=== PATIENT | female | born 1995 | race African-American/Black ===

== ENCOUNTER 2016-11-05 01:49 | Emergency (ER) | payer MEDICAID, OTHER ==
[~2016-11-05] VITALS: Ht 162.6 cm; Wt 70.8 kg
[~2016-11-05 01:49] MED LIST: CIPRO500 MG PO; IBUPROFEN600 MG ORAL; MOTRIN400 MG ORAL; NITROFURANTOIN100 M2 ORAL; NKM; NORCO 5-325 TA1 EACH ORAL; PHENAZOPYRIDIN100 MG ORAL
[2016-11-05] MEDS ORDERED: PREDNISONE20 M1 PO (02:12)
[2016-11-05] MEDS ORDERED: PredniSONE 20mg tab ORAL ONE (02:15)
--- NOTE | 2016-11-05 02:15 | Emergency Room Report ---
History of Present Illness General Chief Complaint: Sore Throat Source: Patient Present Illness [facility] This is a 21-year-old female with no past medical history. She presents with chief complaint of sore throat. Onset for last 5 days. She losing her voice. Has a lot of congestion and runny nose. Fhxz-[id number]-[id number] medicine not helping. Worse when she lies flat. No other complaint. Pain is sharp. Allergies: Coded Allergies: SULFA (SULFONAMIDE ANTIBIOTICS) (Verified Allergy, Unknown, 02/19/13) Patient History Past Medical History: none, see triage record, old chart reviewed Past Surgical History: none Pertinent Family History: none Social History: Denies: smoking Last Menstrual Period: sep 28, 2016 Now: No : 0 Para: 0 Immunizations: other Reviewed Nursing Documentation: PMH: Agreed, PSxH: Agreed Nursing Documentation-PMH Past Medical History: No Stated History Review of Systems Eye: Denies: blurred vision, eye pain ENT: Reports: throat pain, Denies: ear pain, throat swelling Respiratory: Denies: cough, shortness of breath Cardiovascular: Denies: chest pain, palpitations Gastrointestinal: Denies: abdominal pain, diarrhea, nausea, vomiting Musculoskeletal: Denies: back pain, joint pain Skin: Denies: rash Neurological: Denies: headache, numbness Endocrine: Denies: increased thirst, increased urine Hematologic/Lymphatic: Denies: easy bruising All Other Systems: negative except mentioned in HPI Physical Exam Vital Signs Date Time Temp Pulse Resp B/P Pulse Ox O2 Delivery O2 Flow Rate FiO2 11/05/16 01:53 98.6 57 20 127/87 100 Room Air vitals normal Sp02 EP Interpretation: reviewed, normal General Appearance: well appearing, no apparent distress, alert Head: normocephalic, atraumatic Eyes: bilateral eye EOMI, bilateral eye PERRL ENT: hearing grossly normal, uvula midline - Elongated Neck: full range of motion, supple, no meningismus Respiratory: chest non-tender, lungs clear, normal breath sounds Cardiovascular #1: regular rate, rhythm, no murmur Gastrointestinal: normal bowel sounds, non tender, no mass, no organomegaly, no bruit, non-distended Musculoskeletal: back normal, gait/station normal, normal range of motion Psychiatric: mood/affect normal Skin: warm/dry Medical Decision Making Diagnostic Impression: Primary Impression: Laryngitis, acute ER Course Patient presents with a viral laryngitis. No evidence of bacterial infection. No evidence of strep throat. No evidence of retropharyngeal abscess. We'll discharge home with reassurance. Last Vital Signs Date Time Temp Pulse Resp B/P Pulse Ox O2 Delivery O2 Flow Rate FiO2 11/05/16 01:53 98.6 57 20 127/87 100 Room Air Status: unchanged Disposition: HOME, SELF-CARE Condition: Stable Scripts Prednisone (Prednisone) 20 Mg Tablet 40 MG PO DAILY, #6 TAB Prov: EDUARDO WEN M.D. 11/05/16 Patient Instructions: Laryngitis Additional Instructions: Followup with your Dr. in 7 days. Try not to talk at all until better. Increase fluid. Salt water gargle. Return if worse. EDUARDO WEN M.D. Nov 05, 2016 02:14
[2016-11-05 02:20] VITALS: BP_SYST 127; BP_SYST 130; BP_DIAS 87
== END 2016-11-05 02:23 | disposition home or self-care (01) ==
LOC: EMR 02:09
DX: J04.0 Acute laryngitis (principal); Z88.2 Allergy status to sulfonamides
CPT/HCPCS: 99283

== ENCOUNTER 2017-05-07 23:56 | Emergency (ER) | payer OTHER, BC ==
[~2017-05-07] VITALS: Ht 162.6 cm; Wt 68.0 kg
[~2017-05-07 23:56] MED LIST changes: +PREDNISONE20 M1 PO
--- NOTE | 2017-05-08 00:36 | Emergency Room Report ---
History of Present Illness General Chief Complaint: Abdominal Pain Source: Patient Present Illness HPI Patient presents with complaints of mid and right upper quadrant abdominal pain Patient reports the pain has been ongoing since last June She has an appointment for an upper endoscopy in May Patient seen her advanced research programs director who has her on probiotics Also obtain stool samples patient has increased nausea vomiting reports decreased oral intake Denies any previous abdominal surgeries is not quite sure what might of exacerbated this problem Allergies: Coded Allergies: SULFA (SULFONAMIDE ANTIBIOTICS) (Verified Allergy, Unknown, 02/19/13) Patient History Past Medical History: see triage record Pertinent Family History: none Last Menstrual Period: 05/01/17 Now: No Reviewed Nursing Documentation: PMH: Agreed, PSxH: Agreed Nursing Documentation-PMH Past Medical History: No History, Except For Hx Gastrointestinal Problems: No - Ovarian cyst (2014) Review of Systems All Other Systems: negative except mentioned in HPI Physical Exam Vital Signs Date Time Temp Pulse Resp B/P (MAP) Pulse Ox O2 Delivery O2 Flow Rate FiO2 05/08/17 00:10 98.2 83 17 117/82 99 Room Air Sp02 EP Interpretation: reviewed, normal General Appearance: well appearing, no apparent distress Head: normocephalic, atraumatic Eyes: bilateral eye PERRL, bilateral eye EOMI ENT: hearing grossly normal, normal pharynx, TMs + canals normal, uvula midline Neck: full range of motion, supple, no meningismus, no bony tend Respiratory: lungs clear, normal breath sounds, no rhonchi, no respiratory distress, no retraction, no accessory muscle use Cardiovascular #1: normal peripheral pulses, regular rate, rhythm, no edema, no gallop, no JVD, no murmur Gastrointestinal: normal bowel sounds, non tender - On palpation however subjectively points to the epigastric and right upper quadrant, soft, no mass, no organomegaly, non-distended, no guarding, no hernia, no pulsatile mass, no rebound Genitourinary: no CVA tenderness Musculoskeletal: normal inspection Neurologic: oriented x3, responsive, union steward III-XII nml as tested, motor strength/ tone normal, sensory intact Psychiatric: mood/affect normal Skin: normal color, no rash, warm/dry, palpation normal Lymphatic: normal inspection, no adenopathy Medical Decision Making Diagnostic Impression: Primary Impression: Abdominal pain ER Course With the patient's history and examination, multiple differentials considered, including but not limited to , ectopic , ovarian torsion, gastritis, cholecystitis, pancreatitis, appendicitis Patient's exam otherwise is fairly benign There is a somewhat of a chronic component to the patient's presentation baseline blood work are appropriate, white blood cell count was mildly elevated Otherwise with the lack of any lower abdominal pain And the patient's previous imaging studies with 2 CAT scans in previous ultrasound I did not feel that imaging studies were required, The patient's significant improvement She is stable for close outpatient followup Labs Test 05/08/17 00:15 05/08/17 00:45 Urine Color Yellow Urine Appearance Clear Urine pH 5 (4.5-8.0) Urine Specific [place] 1.025 (1.005-1.035) Urine Protein 2+ (NEGATIVE) Urine Glucose (UA) Negative (NEGATIVE) Urine Ketones 4+ (NEGATIVE) Urine Occult Blood 2+ (NEGATIVE) Urine Nitrite Negative (NEGATIVE) Urine Bilirubin 1+ (NEGATIVE) Urine Ictotest Positive Urine Urobilinogen 1 MG/DL (0.0-1.0) Urine Leukocyte Esterase 1+ (NEGATIVE) Urine RBC 0-2 /HPF (0 - 2) Urine WBC 2-4 /HPF (0 - 2) Urine Squamous Epithelial Cells Few /LPF (NONE/OCC) Urine Bacteria Few /HPF (NONE) Urine Mucus Many /LPF (NONE/OCC) Urine HCG, Qualitative Negative White Blood Count 3.7 K/UL (4.8-10.8) Red Blood Count 4.42 M/UL (4.20-5.40) Hemoglobin 14.0 G/DL (12.0-16.0) Hematocrit 40.6 % (37.0-47.0) Mean Corpuscular Volume 92 FL (80-99) Mean Corpuscular Hemoglobin 31.6 PG (27.0-31.0) Mean Corpuscular Hemoglobin Concent 34.4 G/DL (32.0-36.0) Red Cell Distribution Width 11.5 % (11.6-14.8) Platelet Count 217 K/UL (150-450) Mean Platelet Volume 6.9 FL (6.5-10.1) Neutrophils (%) (Auto) 66.3 % (45.0-75.0) Lymphocytes (%) (Auto) 16.1 % (20.0-45.0) Monocytes (%) (Auto) 13.6 % (1.0-10.0) Eosinophils (%) (Auto) 2.3 % (0.0-3.0) Basophils (%) (Auto) 1.8 % (0.0-2.0) Sodium Level 138 mEQ/L (135-145) Potassium Level 4.1 mEQ/L (3.4-4.9) Chloride Level 100 mEQ/L (98-107) Carbon Dioxide Level 20 mEQ/L (20-30) Anion Gap 18 (5-15) Blood Urea Nitrogen 7 mg/dL (7-23) Creatinine 1.0 mg/dL (0.5-0.9) Estimat Glomerular Filtration Rate > 60 mL/min (>60) Glucose Level 98 mg/dL (74-106) Calcium Level 9.6 mg/dL (8.6-10.2) Total Bilirubin 0.8 mg/dL (0.0-1.2) Aspartate Amino Transf (AST/SGOT) 19 U/L (5-40) Alanine Aminotransferase (ALT/SGPT) 10 U/L (3-33) Alkaline Phosphatase 68 U/L (35-104) Total Protein 8.1 g/dL (6.6-8.7) Albumin 4.5 g/dL (3.5-5.2) Globulin 3.6 g/dL Albumin/Globulin Ratio 1.2 (1.0-2.7) Lipase 20 U/L (< 60) Last Vital Signs Date Time Temp Pulse Resp B/P (MAP) Pulse Ox O2 Delivery O2 Flow Rate FiO2 05/08/17 00:10 98.2 83 17 117/82 99 Room Air Status: improved Disposition: HOME, SELF-CARE Condition: Improved Scripts Metoclopramide Hcl* (REGLAN*) 10 Mg Tablet 10 MG ORAL BID, #12 TAB Prov: ALESSIA GONZALEZ D.O. 05/08/17 Additional Instructions: Patient is provided with the discharge instructions notified to follow up with primary doctor in the next 2-3 days otherwise return to the er with any worsening symptoms. Please note that this report is being documented using [employer] technology. This can lead to erroneous entry secondary to incorrect interpretation by the dictating instrument. ALESSIA GONZALEZ D.O. May 08, 2017 00:36
[2017-05-08] MEDS ORDERED: LORazepam Inj 2mg/ml 1ml IV ONE (00:45)
[2017-05-08] MEDS ORDERED: Metoclopramide 10mg/2ml Inj IVP ONE (00:45)
[2017-05-08] MEDS ORDERED: DiphenhydrAMINE 50mg/ml Inj IVP ONE (00:45)
[2017-05-08] MEDS ORDERED: Tubing IV Cassette IV ONE (00:50)
[2017-05-08 01:06] LABS: APPEARANCE,URINE CLEAR; KETONES,URINE 4+ (NEGATIVE); LEUKOCYTE ESTERASE ,URINE 1+ (NEGATIVE); NITRITE,URINE NEGATIVE (NEGATIVE); PH,URINE 5 (4.5-8.0); PROTEIN,URINE 2+ (NEGATIVE); UROBILINOGEN,URINE 1 MG/DL (0.0-1.0)
[2017-05-08 01:11] LABS: BASOPHILS % (AUTO) 1.8 % (0.0-2.0); EOSINOPHILS % (AUTO) 2.3 % (0.0-3.0); LYMPHOCYTES % (AUTO) 16.1 % (20.0-45.0); MEAN CORPUSCULAR HEMOGLOBIN 31.6 PG (27.0-31.0); MEAN CORPUSCULAR HGB CONC 34.4 G/DL (32.0-36.0); MEAN CORPUSCULAR VOLUME 92 FL (80-99); MEAN PLATELET VOLUME 6.9 FL (6.5-10.1); MONOCYTES % (AUTO) 13.6 % (1.0-10.0); NEUTROPHILS % (AUTO) 66.3 % (45.0-75.0); PLATELET COUNT 217 K/UL (150-450); RED BLOOD COUNT 4.42 M/UL (4.20-5.40); RED CELL DISTRIBUTION WIDTH 11.5 % (11.6-14.8); WHITE BLOOD COUNT 3.7 K/UL (4.8-10.8)
[2017-05-08 01:15] LABS: BACTERIA,URINE FEW /HPF; RBC,URINE 0-2 /HPF (0 - 2); SQUAMOUS EPITHELIAL CELL,UR FEW /LPF (NONE/OCC)
[2017-05-08 01:16] LABS: ICTOTEST POSITIVE; MUCUS,URINE MANY /LPF (NONE/OCC)
[2017-05-08 01:49] VITALS: BP 107/64
[2017-05-08 02:01] LABS: ALANINE AMINOTRANSFERASE 10 U/L (3-33); ALBUMIN/GLOBULIN RATIO 1.2 (1.0-2.7); ANION GAP 18 (5-15); ASPARTATE AMINO TRANSFERASE 19 U/L (5-40); CALCIUM 9.6 mg/dL (8.6-10.2); CARBON DIOXIDE 20 mEQ/L (20-30); CHLORIDE 100 mEQ/L (98-107); GLOMERULAR FILTRATION RATE > 60 mL/min (>60); HEMOLYSIS 3; LIPASE 20 U/L (< 60); POTASSIUM 4.1 mEQ/L (3.4-4.9); SODIUM 138 mEQ/L (135-145); TOTAL PROTEIN 8.1 g/dL (6.6-8.7)
[2017-05-08] MEDS ORDERED: REGLAN10 MG ORAL (02:24)
[2017-05-08 02:50] VITALS: BP_SYST 107; BP_SYST 114; BP_DIAS 64; BP_DIAS 69
== END 2017-05-08 02:50 | disposition home or self-care (01) ==
LOC: EMR 05-08 00:25
DX: R10.9 Unspecified abdominal pain (principal); R11.2 Nausea with vomiting, unspecified; Z88.2 Allergy status to sulfonamides
CPT/HCPCS: 36415; 80053; 81003; 81025; 83690; 85025; 96360; 96374; 96375; 99284; J1200; J2765

== ENCOUNTER 2017-09-28 19:02 | Emergency (ER) | payer OTHER, BC ==
[~2017-09-28] VITALS: Ht 162.6 cm; Wt 66.7 kg
[~2017-09-28 19:02] MED LIST changes: +REGLAN10 MG ORAL
[2017-09-28 19:20] VITALS: BP 119/77
--- NOTE | 2017-09-28 19:21 | Emergency Room Report ---
History of Present Illness General Chief Complaint: Earache Source: Patient Present Illness HPI 22-year-old female presents to the emergency department complaining of 10 out of 10 in severity right-sided ear pain x5 days of progression onto the right side of her neck and shoulder with subjective fevers or chills she denies discharge from the ear or external ear tenderness. Patient denies tinnitus or dizziness. reports nasal congestion. Sore throat painful swallowing. Denies trauma or fall. Denies swollen tonsils. Denies CP, Palpitations, LOC, AMS, dizziness, Changes in Vision, Sensation, paresthesias, or a sudden severe headache. Allergies: Coded Allergies: SULFA (SULFONAMIDE ANTIBIOTICS) (Verified Allergy, Unknown, 02/19/13) Patient History Past Medical History: see triage record Past Surgical History: none Pertinent Family History: none Last Menstrual Period: Sep 19 Now: No Immunizations: UTD Reviewed Nursing Documentation: PMH: Agreed, PSxH: Agreed Nursing Documentation-PMH Hx Gastrointestinal Problems: No - Ovarian cyst (2014) Review of Systems All Other Systems: negative except mentioned in HPI Physical Exam Vital Signs Date Time Temp Pulse Resp B/P (MAP) Pulse Ox O2 Delivery O2 Flow Rate FiO2 09/28/17 19:05 98.2 78 18 119/77 98 Room Air Sp02 EP Interpretation: reviewed, normal General Appearance: no apparent distress, alert, GCS 15, non-toxic Head: normocephalic, atraumatic Eyes: bilateral eye normal inspection, bilateral eye PERRL ENT: hearing grossly normal, normal voice, uvula midline, moist mucus membranes , nasal congestion, pharyngeal erythema, other - Right TM is erythematous and bulging, right mastoid is ttp, no erythema or increased temp. to palp. right subparotid and ant. cervical LAD, FROm of neck. Neck: full range of motion, no meningismus, no bony tend Respiratory: chest non-tender, lungs clear, normal breath sounds, speaking full sentences Cardiovascular #1: regular rate, rhythm Rectal: deferred Musculoskeletal: back normal, gait/station normal, normal range of motion, non- tender Neurologic: alert, oriented x3, responsive, motor strength/tone normal, sensory intact, speech normal, grossly normal Psychiatric: judgement/insight normal Skin: normal color, no rash, warm/dry, well hydrated Medical Decision Making PA Attestation Dr. jean is my supervising Physician whom patient management has been discussed with. Diagnostic Impression: Primary Impression: Otitis media Qualified Codes: H65.01 - Acute serous otitis media, right ear ER Course 22-year-old female presents to the emergency department complaining of 10 out of 10 in severity right-sided ear pain x5 days of progression onto the right side of her neck and shoulder with subjective fevers or chills she denies discharge from the ear or external ear tenderness. Patient denies tinnitus or dizziness. reports nasal congestion. Sore throat painful swallowing. Denies trauma or fall. Denies swollen tonsils. Denies CP, Palpitations, LOC, AMS, dizziness, Changes in Vision, Sensation, paresthesias, or a sudden severe headache. Ddx considered but are not limited to OM, OE, mastoiditis, TM perforation, FB Vital signs: are WNL, pt. is afebrile H&PE are most consistent with otitis media ORDERS: none required at this time, the diagnosis is clinical -OTOSCOPY: ED INTERVENTIONS: None required at this time. DISCHARGE: At this time pt. is stable for d/c to home. With PO ABX. Will provide printed patient care instructions, and any necessary prescriptions. Care plan and follow up instructions have been discussed with the patient prior to discharge. Last Vital Signs Date Time Temp Pulse Resp B/P (MAP) Pulse Ox O2 Delivery O2 Flow Rate FiO2 09/28/17 19:05 98.2 78 18 119/77 98 Room Air Disposition: HOME, SELF-CARE Condition: Stable Scripts [auralgan generic] No Conflict Check 2 DROP Q6HR, #7.5 ML Prov: Yuliana Dhaliwal 09/28/17 Ibuprofen* (MOTRIN*) 600 Mg Tablet 600 MG ORAL THREE TIMES A DAY, #30 TAB 0 Refills Prov: Yuliana Dhaliwal.AKatelyn 09/28/17 Amoxicillin/Potassium Clav 875-125* (AUGMENTIN 875-125 TABLET*) 1 Each Tablet 1 TAB ORAL TWICE A DAY for 10 Days, #20 TAB Prov: Yuliana Dhaliwal.A. 09/28/17 Patient Instructions: Earache, Otitis Media, Adult, [id number] Additional Instructions: Take medications as directed. Follow up with a Primary Care Provider in 3-5 days, even if your symptoms have resolved. --Please review list of primary care clinics, if you do not already have a primary care provider Return sooner to ED if new symptoms occur, or current symptoms become worse. - Please note that this Emergency Department Report was dictated using [employer] recruiter technology software, occasionally this can lead to erroneous entry secondary to interpretation by the dictation equipment. Yuliana Dhaliwal Sep 28, 2017 19:21
[2017-09-28] MEDS ORDERED: IBUPROFEN600 MG ORAL (19:22)
[2017-09-28] MEDS ORDERED: AUGMENTIN 875-1 EAC1 ORAL (19:22)
[2017-09-28] MEDS ORDERED: auralgan generic (19:22)
[2017-09-28 19:46] VITALS: BP 119/77
== END 2017-09-28 19:46 | disposition home or self-care (01) ==
LOC: EMR 19:17
DX: H66.91 Otitis media, unspecified, right ear (principal)
CPT/HCPCS: 99283

== ENCOUNTER 2017-10-08 13:52 | Emergency (ER) | payer OTHER, BC ==
[~2017-10-08] VITALS: Ht 162.6 cm; Wt 67.1 kg
[~2017-10-08 13:52] MED LIST changes: +AUGMENTIN 875-1 EAC1 ORAL; +auralgan generic
[2017-10-08 13:58] VITALS: BP 113/73
[2017-10-08 14:21] LABS: APPEARANCE,URINE CLEAR; BILIRUBIN, URINE NEGATIVE (NEGATIVE); GLUCOSE, URINE (UA) NEGATIVE (NEGATIVE); KETONES,URINE NEGATIVE (NEGATIVE); LEUKOCYTE ESTERASE ,URINE 1+ (NEGATIVE); NITRITE,URINE NEGATIVE (NEGATIVE); PH,URINE 8 (4.5-8.0); PROTEIN,URINE NEGATIVE (NEGATIVE); UROBILINOGEN,URINE 4 MG/DL (0.0-1.0)
[2017-10-08] MEDS ORDERED: IBUPROFEN600 MG ORAL (14:22)
[2017-10-08] MEDS ORDERED: NITROFURANTOIN100 M2 ORAL (14:22)
[2017-10-08 14:24] LABS: COLOR,URINE YELLOW
[2017-10-08 14:25] VITALS: BP 113/73
--- NOTE | 2017-10-08 14:27 | Emergency Room Report ---
History of Present Illness General Chief Complaint: Earache Source: Patient Present Illness HPI 22-year-old female walk-in with 2-3 days of now left-sided ear ache, radiating to neck. Also associated with left lower tooth pain, recent filling to 3 months ago. Patient states yesterday she finished antibiotic treatment for right-sided ear infection. Patient denies history of diabetes, denies any pain to temporal bone. Denies fever or chills. Review of systems also endorsing dysuria for 2-3 days but without associated polyuria or flank pain. Does not get frequent UTIs. Allergies: Coded Allergies: SULFA (SULFONAMIDE ANTIBIOTICS) (Verified Allergy, Unknown, 02/19/13) Patient History Past Medical History: none Past Surgical History: none Pertinent Family History: none Social History: Denies: smoking, alcohol use, drug use Last Menstrual Period: 08/19/2017 Now: No Immunizations: UTD Reviewed Nursing Documentation: PMH: Agreed, PSxH: Agreed Nursing Documentation-PMH Past Medical History: No History, Except For Hx Gastrointestinal Problems: No - Ovarian cyst (2014) Review of Systems All Other Systems: negative except mentioned in HPI Physical Exam Vital Signs Date Time Temp Pulse Resp B/P (MAP) Pulse Ox O2 Delivery O2 Flow Rate FiO2 10/08/17 13:58 98.1 85 14 113/73 98 Room Air Sp02 EP Interpretation: reviewed, normal General Appearance: normal inspection, well appearing, no apparent distress, alert, GCS 15, non-toxic Head: normocephalic, atraumatic Eyes: bilateral eye PERRL, bilateral eye EOMI ENT: normal ENT inspection, hearing grossly normal, normal pharynx, no angioedema, normal voice, TMs + canals normal, uvula midline, moist mucus membranes, other - Bilateral TMs clear, no sign of infection. No tenderness to mastoid bone. No drainage from ear. Overall poor dentition with multiple crowns noted to left lower teeth, no apical infection or in her cheek swelling or infection. Neck: normal inspection, full range of motion, supple, thyroid normal, no meningismus, no bony tend Respiratory: normal inspection, lungs clear, normal breath sounds, no rhonchi, no respiratory distress, no retraction, no accessory muscle use, no wheezing, speaking full sentences Cardiovascular #1: regular rate, rhythm, no edema, no JVD, normal capillary refill Gastrointestinal: normal inspection, normal bowel sounds, non tender, soft, no mass, no peritonitis, non-distended, no guarding, no hernia, no pulsatile mass Genitourinary: no CVA tenderness Musculoskeletal: normal inspection, back normal, normal range of motion, no calf tenderness, pelvis stable, Cabrera's Sign negative Neurologic: normal inspection, alert, oriented x3, responsive, naval police coxswain III-XII nml as tested, motor strength/tone normal, cerebellar normal, normal gait, speech normal Psychiatric: normal inspection, judgement/insight normal, mood/affect normal, no suicidal/homicidal ideation, no delusions Skin: normal inspection, normal color, no rash Lymphatic: normal inspection, no adenopathy Medical Decision Making Diagnostic Impression: Primary Impression: Toothache Additional Impression: urinary tract infection ER Course left ear pain possibly referred to pain. No sign of otitis media or oropharynx infection. Was given ibuprofen in ER. Advised to followup with dentist and X. one to 2 days. Given history of dysuria we'll treat empirically for UTI. Urine culture pending. Patient had success with Macrobid in the past. ER course: Patient has remained stable during ED stay. Disposition: Patient is to be discharged to home. Prescriptions given are macrobid, motrin Patient is instructed to follow up with their primary care doctor within 5 days. Strict return precautions discussed with patient such as fever, chills, worsening/severe pain, nausea, vomiting, which may indicate severe illness. Patient verbalizes understanding and agrees with plan. Please note that this Emergency Department Report was dictated using [employer] bus driver/custodian technology software, occasionally this can lead to erroneous entry secondary to interpretation by the dictation equipment Last Vital Signs Date Time Temp Pulse Resp B/P (MAP) Pulse Ox O2 Delivery O2 Flow Rate FiO2 10/08/17 13:58 98.1 85 14 113/73 98 Room Air Status: improved Disposition: HOME, SELF-CARE Condition: Improved Scripts Ibuprofen* (MOTRIN*) 600 Mg Tablet 600 MG ORAL THREE TIMES A DAY for 7 Days, #30 TAB 0 Refills Prov: ABRAHAM JORDAN M.D. 10/08/17 Nitrofurantoin Monohyd/M-Cryst* (MACROBID 100 MG*) 100 Mg Capsule 100 MG ORAL EVERY 12 HOURS, #14 CAP Prov: ABRAHAM JORDAN M.D. 10/08/17 Patient Instructions: Dysuria, Dental Pain, [id number] Additional Instructions: - Take all Antibiotics for UTI - Take ibuprofen every 8 hours with food for pain - Follow up with dentist in 2-3 days - Apply ice to left side of neck where you have pain 3-4x a day ABRAHAM JORDAN M.D. Oct 08, 2017 14:27
== END 2017-10-08 14:24 | disposition home or self-care (01) ==
LOC: EMR 14:10
DX: K08.89 Other specified disorders of teeth and supporting structures (principal); N39.0 Urinary tract infection, site not specified; H92.02 Otalgia, left ear; Z88.2 Allergy status to sulfonamides
CPT/HCPCS: 81003; 81025; 99283

== ENCOUNTER 2017-10-11 20:11 | Emergency (ER) | payer OTHER, BC ==
[~2017-10-11] VITALS: Ht 162.6 cm; Wt 67.1 kg
[2017-10-11 20:50] VITALS: BP 102/47
[2017-10-11] MEDS ORDERED: Ketorolac 30mg Inj IV ONE (22:15)
[2017-10-11 22:47] LABS: BASOPHILS % (AUTO) 1.2 % (0.0-2.0); EOSINOPHILS % (AUTO) 4.5 % (0.0-3.0); HEMATOCRIT 40.9 % (37.0-47.0); HEMOGLOBIN 13.3 G/DL (12.0-16.0); LYMPHOCYTES % (AUTO) 41.3 % (20.0-45.0); MEAN CORPUSCULAR VOLUME 93 FL (80-99); MONOCYTES % (AUTO) 9.8 % (1.0-10.0); NEUTROPHILS % (AUTO) 43.3 % (45.0-75.0); PLATELET COUNT 232 K/UL (150-450); RED BLOOD COUNT 4.41 M/UL (4.20-5.40); RED CELL DISTRIBUTION WIDTH 12.4 % (11.6-14.8); WHITE BLOOD COUNT 5.9 K/UL (4.8-10.8)
--- NOTE | 2017-10-11 22:47 | Emergency Room Report ---
History of Present Illness General Chief Complaint: Toothache Source: Patient Present Illness HPI 22-year-old female returns to ER for worsening pain to the left lower tooth, without radiation to behind left ear, left-sided neck and upper part left chest States she was taking Motrin however only once a day [place] any fever or chills denies throat pain or tightness Denies SOB, wheezing, history of asthma, COPD still unable to followup with dentist Allergies: Coded Allergies: SULFA (SULFONAMIDE ANTIBIOTICS) (Verified Allergy, Unknown, 02/19/13) Patient History Past Medical History: none Past Surgical History: none Pertinent Family History: none Social History: Denies: smoking, alcohol use, drug use Last Menstrual Period: Sep Now: No Immunizations: UTD Reviewed Nursing Documentation: PMH: Agreed, PSxH: Agreed Nursing Documentation-PMH Hx Gastrointestinal Problems: No - Ovarian cyst (2014) Review of Systems All Other Systems: negative except mentioned in HPI Physical Exam Vital Signs Date Time Temp Pulse Resp B/P (MAP) Pulse Ox O2 Delivery O2 Flow Rate FiO2 10/11/17 20:38 98.1 69 18 102/47 98 Room Air Sp02 EP Interpretation: reviewed, normal General Appearance: normal inspection, well appearing, no apparent distress, alert, GCS 15, non-toxic Head: normocephalic, atraumatic Eyes: bilateral eye PERRL, bilateral eye EOMI ENT: normal ENT inspection, hearing grossly normal, normal pharynx, no angioedema, normal voice, TMs + canals normal, uvula midline, moist mucus membranes, other - Left lower teeth: mild periapical infection/inflammation tooth 20/21. No cheek ttp, swelling, abscess. No palpable crepitus to left neck , left upper chest Neck: normal inspection, full range of motion, supple, thyroid normal, no meningismus, no bony tend Respiratory: normal inspection, lungs clear, normal breath sounds, no rhonchi, no respiratory distress, no retraction, no accessory muscle use, no wheezing, speaking full sentences Cardiovascular #1: regular rate, rhythm, no edema, no JVD, normal capillary refill Gastrointestinal: normal inspection, normal bowel sounds, non tender, soft, no mass, no peritonitis, non-distended, no guarding, no hernia, no pulsatile mass Genitourinary: no CVA tenderness Musculoskeletal: normal inspection, back normal, normal range of motion, no calf tenderness, pelvis stable, Cabrera's Sign negative Neurologic: normal inspection, alert, oriented x3, responsive, dramatic coach III-XII nml as tested, motor strength/tone normal, cerebellar normal, normal gait, speech normal Psychiatric: normal inspection, judgement/insight normal, mood/affect normal, no suicidal/homicidal ideation, no delusions Skin: normal inspection, normal color, no rash Lymphatic: normal inspection, no adenopathy Medical Decision Making Diagnostic Impression: Primary Impression: Periapical abscess ER Course 22YOF with periapical tooth infection, NOT abscess VSS, Afebrile Given repeat visit with continued pain, CT and labs done for further workup Labs unremarkable CT does not show any abscess or tracking of left jaw, neck, mouth Will give Clinda for oral infection Advised continued motrin TID as needed Close dental followup ER course: Patient has remained stable during ED stay. Disposition: Patient is to be discharged to home. Prescriptions given are clinda Patient is instructed to follow up with their primary care doctor within 5 days. Patient is instructed to follow up with dentist in 1 day Strict return precautions discussed with patient such as fever, chills, worsening/severe pain, nausea, vomiting, which may indicate severe illness. Patient verbalizes understanding and agrees with plan. Please note that this Emergency Department Report was dictated using [employer] sewer technology software, occasionally this can lead to erroneous entry secondary to interpretation by the dictation equipment Last Vital Signs Date Time Temp Pulse Resp B/P (MAP) Pulse Ox O2 Delivery O2 Flow Rate FiO2 10/11/17 20:38 98.1 69 18 102/47 98 Room Air Status: improved Disposition: HOME, SELF-CARE Scripts Clindamycin Hcl (CLINDAMYCIN HCL) 300 Mg Capsule 300 MG ORAL THREE TIMES A DAY for 7 Days, #21 CAP Prov: ABRAHAM JORDAN M.D. 10/12/17 ABRAHAM JORDAN M.D. Oct 11, 2017 22:47
[2017-10-11 22:58] LABS: ANION GAP 8 mmol/L (5-15); BLOOD UREA NITROGEN 8 mg/dL (7-18); CALCIUM 9.4 MG/DL (8.5-10.1); CARBON DIOXIDE 26 MMOL/L (21-32); CHLORIDE 106 MMOL/L (98-107); CREATININE 0.8 MG/DL (0.55-1.30); POTASSIUM 4.1 MMOL/L (3.5-5.1); SODIUM 140 MMOL/L (136-145)
[2017-10-11 23:03] LABS: ALANINE AMINOTRANSFERASE 12 U/L (12-78); ALBUMIN 4.1 G/DL (3.4-5.0); ALBUMIN/GLOBULIN RATIO 1.1 (1.0-2.7); ALKALINE PHOSPHATASE 66 U/L (46-116); ASPARTATE AMINO TRANSFERASE 16 U/L (15-37); BILIRUBIN,TOTAL 0.9 MG/DL (0.2-1.0)
[2017-10-12] MEDS ORDERED: CLINDAMYCIN HC300 MG ORAL (00:25)
[2017-10-12 00:43] VITALS: BP 107/65
--- NOTE | 2017-10-12 09:03 | Diagnostic Imaging Report ---
Indication: Reason For Exam: PAIN Technique: IV administration nonionic contrast. Spiral acquisitions obtained through the Multiplanar reconstructions were generated. Total dose length product 573.21 mGycm. CTDIvol(s) 28.19 mGy. Radiation dose was minimized using automated exposure control Comparison: none Findings: Streak artifact from dental amalgam may obscure pathology. The mandible and dentition appear intact. No significant perimandibular soft tissue swelling or fluid collection demonstrated. Unremarkable nasopharynx, oropharynx, hypopharynx. No definite mass or adenopathy. The orbits are unremarkable. The sinuses are clear. There is nasal jewelry. Visualized intracranial structures are unremarkable. The salivary glands are unremarkable. Impression: Negative This agrees with the preliminary interpretation provided overnight by [facility]. The CT scanner at [facility] is accredited by the [employer] and the scans are performed using protocols designed to limit radiation exposure to as low as reasonably achievable to attain images of sufficient resolution adequate for diagnostic evaluation.
== END 2017-10-12 00:43 | disposition home or self-care (01) ==
LOC: EMR 21:05
DX: K04.7 Periapical abscess without sinus (principal); Z88.2 Allergy status to sulfonamides
CPT/HCPCS: 36415; 70488; 80053; 81025; 85025; 96374; 99284; J1885; Q9967

== ENCOUNTER 2017-11-01 19:42 | Emergency (ER) | payer OTHER, BC ==
[~2017-11-01] VITALS: Ht 162.6 cm; Wt 64.4 kg
[~2017-11-01 19:42] MED LIST changes: +CLINDAMYCIN HC300 MG ORAL
[2017-11-01 20:00] VITALS: BP 120/69
[2017-11-01 20:06] LABS: BILIRUBIN, URINE NEGATIVE (NEGATIVE); GLUCOSE, URINE (UA) NEGATIVE (NEGATIVE); KETONES,URINE 2+ (NEGATIVE); LEUKOCYTE ESTERASE ,URINE 3+ (NEGATIVE); NITRITE,URINE POSITIVE (NEGATIVE); PH,URINE 7 (4.5-8.0); PROTEIN,URINE 2+ (NEGATIVE); UROBILINOGEN,URINE NORMAL MG/DL (0.0-1.0)
[2017-11-01 20:14] LABS: APPEARANCE,URINE SLIGHTLY CLOUDY; COLOR,URINE YELLOW
[2017-11-01] MEDS ORDERED: Phenazopyridine 200mg tab ORAL ONE (20:15)
--- NOTE | 2017-11-01 20:17 | Emergency Room Report ---
History of Present Illness General Chief Complaint: Female Urogenital Problems Source: Patient Present Illness HPI 22-year-old female presents to the emergency department complaining of 8/10 in severity dysuria, urinary frequency, and urinary urgency x2 days. Patient denies fevers, chills, low back pain she reports some hematuria. Patient denies . She denies abdominal pain. Denies CP, Palpitations, LOC, AMS , dizziness, Changes in Vision, Sensation, paresthesias, or a sudden severe headache. Allergies: Coded Allergies: SULFA (SULFONAMIDE ANTIBIOTICS) (Verified Allergy, Unknown, 02/19/13) Patient History Past Medical History: see triage record Past Surgical History: none Pertinent Family History: none Last Menstrual Period: oct 25 Now: No Immunizations: UTD Reviewed Nursing Documentation: PMH: Agreed, PSxH: Agreed Nursing Documentation-PMH Hx Gastrointestinal Problems: No - Ovarian cyst (2014) Review of Systems All Other Systems: negative except mentioned in HPI Physical Exam Vital Signs Date Time Temp Pulse Resp B/P (MAP) Pulse Ox O2 Delivery O2 Flow Rate FiO2 11/01/17 19:45 97.5 62 18 120/69 99 Room Air 97.5 Sp02 EP Interpretation: reviewed, normal General Appearance: no apparent distress, alert, GCS 15, non-toxic Head: normocephalic, atraumatic ENT: hearing grossly normal, normal voice Neck: full range of motion Respiratory: lungs clear, normal breath sounds, speaking full sentences Cardiovascular #1: regular rate, rhythm Gastrointestinal: normal bowel sounds, non tender, soft Rectal: deferred Genitourinary: normal inspection, no CVA tenderness Musculoskeletal: back normal, gait/station normal, normal range of motion, non- tender Neurologic: alert, oriented x3, responsive, speech normal, grossly normal Psychiatric: judgement/insight normal Skin: normal color, no rash, warm/dry, well hydrated Medical Decision Making PA Attestation Dr. jean is my supervising Physician whom patient management has been discussed with. Diagnostic Impression: Primary Impression: Dysuria Additional Impression: urinary tract infection ER Course 22-year-old female presents to the emergency department complaining of 8/10 in severity dysuria, urinary frequency, and urinary urgency x2 days. Patient denies fevers, chills, low back pain she reports some hematuria. Patient denies . She denies abdominal pain. Denies CP, Palpitations, LOC, AMS , dizziness, Changes in Vision, Sensation, paresthesias, or a sudden severe headache. Ddx considered but are not limited to UTi , Pyelo, STI, Stone, Cystitis Vital signs: are WNL, pt. is afebrile H&PE are most consistent with UTI ORDERS: - UA labs are attached ED INTERVENTIONS: -Pyridium PO DISCHARGE: At this time pt. is stable for d/c to home. Will provide printed patient care instructions, and any necessary prescriptions. Care plan and follow up instructions have been discussed with the patient prior to discharge. Labs Test 11/01/17 19:49 Urine Color Yellow Urine Appearance Slightly cloudy Urine pH 7 (4.5-8.0) Urine Specific [place] 1.015 (1.005-1.035) Urine Protein 2+ (NEGATIVE) Urine Glucose (UA) Negative (NEGATIVE) Urine Ketones 2+ (NEGATIVE) Urine Occult Blood 4+ (NEGATIVE) Urine Nitrite Positive (NEGATIVE) Urine Bilirubin Negative (NEGATIVE) Urine Urobilinogen Normal MG/DL (0.0-1.0) Urine Leukocyte Esterase 3+ (NEGATIVE) Urine RBC 10-15 /HPF (0 - 2) Urine WBC 5-10 /HPF (0 - 2) Urine Squamous Epithelial Cells Few /LPF (NONE/OCC) Urine Amorphous Sediment Few /LPF (NONE) Urine Bacteria Moderate /HPF (NONE) Last Vital Signs Date Time Temp Pulse Resp B/P (MAP) Pulse Ox O2 Delivery O2 Flow Rate FiO2 11/01/17 19:45 97.5 62 18 120/69 99 Room Air 97.5 Disposition: HOME, SELF-CARE Condition: Stable Scripts Phenazopyridine Hcl* (PYRIDIUM*) 200 Mg Tablet 200 MG ORAL THREE TIMES A DAY for 3 Days, #9 TAB 0 Refills Prov: Yuliana Dhaliwal P.A. 11/01/17 Nitrofurantoin Monohyd/M-Cryst* (MACROBID 100 MG*) 100 Mg Capsule 100 MG ORAL EVERY 12 HOURS for 5 Days, #10 CAP Prov: Yuliana Dhaliwal P.A. 11/01/17 Patient Instructions: Urinary Tract Infection Additional Instructions: Take medications as directed. Pyridium will cause your urine to change color (Red/[place]), this is a normal side effect of the medication. Follow up with a Primary Care Provider in 3-5 days, even if your symptoms have resolved. --Please review list of primary care clinics, if you do not already have a primary care provider Return sooner to ED if new symptoms occur, or current symptoms become worse. - Please note that this Emergency Department Report was dictated using [employer] court reporter technology software, occasionally this can lead to erroneous entry secondary to interpretation by the dictation equipment. Yuliana Dhaliwal Nov 01, 2017 20:17
[2017-11-01] MEDS ORDERED: NITROFURANTOIN100 M2 ORAL ×2 (20:18→20:19)
[2017-11-01] MEDS ORDERED: PHENAZOPYRIDIN200 MG ORAL ×2 (20:18→20:19)
[2017-11-01 20:25] VITALS: BP 120/69
== END 2017-11-01 20:25 | disposition home or self-care (01) ==
LOC: EMR 20:02
DX: N39.0 Urinary tract infection, site not specified (principal); Z88.2 Allergy status to sulfonamides
CPT/HCPCS: 81003; 87086; 87181; 99283

== ENCOUNTER 2018-01-28 09:23 | Emergency (ER) | payer OTHER, BC ==
[~2018-01-28] VITALS: Ht 162.6 cm; Wt 66.7 kg
[~2018-01-28 09:23] MED LIST changes: +PHENAZOPYRIDIN200 MG ORAL
[2018-01-28 09:50] VITALS: BP 110/63
[2018-01-28 10:30] LABS: BASOPHILS % (AUTO) 1.1 % (0.0-2.0); HEMATOCRIT 37.9 % (37.0-47.0); HEMOGLOBIN 12.6 G/DL (12.0-16.0); LYMPHOCYTES % (AUTO) 19.3 % (20.0-45.0); MEAN CORPUSCULAR VOLUME 92 FL (80-99); MONOCYTES % (AUTO) 7.8 % (1.0-10.0); NEUTROPHILS % (AUTO) 70.8 % (45.0-75.0); PLATELET COUNT 241 K/UL (150-450); RED CELL DISTRIBUTION WIDTH 11.9 % (11.6-14.8); WHITE BLOOD COUNT 6.8 K/UL (4.8-10.8)
[2018-01-28 10:37] LABS: ANION GAP 8 mmol/L (5-15); BLOOD UREA NITROGEN 11 mg/dL (7-18); CALCIUM 9.4 MG/DL (8.5-10.1); CARBON DIOXIDE 25 MMOL/L (21-32); CHLORIDE 105 MMOL/L (98-107); CREATININE 1.1 MG/DL (0.55-1.30); POTASSIUM 4.3 MMOL/L (3.5-5.1); SODIUM 138 MMOL/L (136-145)
[2018-01-28 10:41] LABS: ALANINE AMINOTRANSFERASE 35 U/L (12-78); ALBUMIN 3.9 G/DL (3.4-5.0); ALBUMIN/GLOBULIN RATIO 0.9 (1.0-2.7); ALKALINE PHOSPHATASE 68 U/L (46-116); ASPARTATE AMINO TRANSFERASE 28 U/L (15-37); BILIRUBIN,TOTAL 0.7 MG/DL (0.2-1.0)
[2018-01-28] MEDS ORDERED: IBUPROFEN600 MG ORAL (11:22)
[2018-01-28 11:37] VITALS: BP 110/86
--- NOTE | 2018-01-28 14:12 | Diagnostic Imaging Report ---
Indication: Chest pain Technique: One view of the chest Comparison: none Findings: Lungs and pleural spaces are clear. Heart size is normal Impression: No acute process
--- NOTE | 2018-01-30 07:09 | Emergency Room Report ---
History of Present Illness General Chief Complaint: Chest Pain Source: Patient Present Illness HPI Patient presents with complaints of chest pain Midsternal Ongoing for the past 3-4 days Patient denies any vomiting denies any diarrhea Pain is a sharp pain and does have a pleuritic component also smokes marijuana Denies any recent travel denies any calf pain Denies any swelling Denies any change with position or exertion Allergies: Coded Allergies: SULFA (SULFONAMIDE ANTIBIOTICS) (Verified Allergy, Unknown, 02/19/13) Patient History Past Medical History: see triage record Pertinent Family History: none Last Menstrual Period: 01/22/2018 Now: No Reviewed Nursing Documentation: PMH: Agreed; PSxH: Agreed Nursing Documentation-PMH Past Medical History: No History, Except For Hx Gastrointestinal Problems: No History Of Psychiatric Problem: Yes - Anxiety Review of Systems All Other Systems: negative except mentioned in HPI Physical Exam Vital Signs Date Time Temp Pulse Resp B/P (MAP) Pulse Ox O2 Delivery O2 Flow Rate FiO2 01/28/18 09:30 97.7 71 16 108/76 99 Room Air 97.7 Sp02 EP Interpretation: reviewed, normal General Appearance: well appearing, no apparent distress Head: normocephalic, atraumatic Eyes: bilateral eye PERRL, bilateral eye EOMI ENT: hearing grossly normal, normal pharynx, TMs + canals normal, uvula midline Neck: full range of motion, supple, no meningismus, no bony tend Respiratory: lungs clear, normal breath sounds, no rhonchi, no respiratory distress, no retraction, no accessory muscle use Cardiovascular #1: normal peripheral pulses, regular rate, rhythm, no edema, no gallop, no JVD, no murmur Gastrointestinal: normal bowel sounds, non tender, soft, no mass, no organomegaly, non-distended, no guarding, no hernia, no pulsatile mass, no rebound Genitourinary: no CVA tenderness Musculoskeletal: normal inspection Neurologic: oriented x3, responsive, cover remover III-XII nml as tested, motor strength/ tone normal, sensory intact Psychiatric: mood/affect normal Skin: normal color, no rash, warm/dry, palpation normal Lymphatic: normal inspection, no adenopathy Medical Decision Making Diagnostic Impression: Primary Impression: Chest pain Additional Impression: Pleurisy ER Course Patient is a fairly complex patient with multiple differential to consideration including but not limited to cardiac cardiopulmonary and vascular emergencies Patient's called exam is indicative of benign pleurisy Given the complaints however extensive workup was initiated along with imaging study Results are at baseline levels patient has Extremely low score for pulmonary embolism and further imaging has not been done and stable for conservative initial outpatient follow-up Labs Test 01/28/18 10:05 01/28/18 10:20 01/28/18 10:25 Urine HCG, Qualitative Negative (NEGATIVE) White Blood Count 6.8 K/UL (4.8-10.8) Red Blood Count 4.10 M/UL (4.20-5.40) Hemoglobin 12.6 G/DL (12.0-16.0) Hematocrit 37.9 % (37.0-47.0) Mean Corpuscular Volume 92 FL (80-99) Mean Corpuscular Hemoglobin 30.7 PG (27.0-31.0) Mean Corpuscular Hemoglobin Concent 33.2 G/DL (32.0-36.0) Red Cell Distribution Width 11.9 % (11.6-14.8) Platelet Count 241 K/UL (150-450) Mean Platelet Volume 6.8 FL (6.5-10.1) Neutrophils (%) (Auto) 70.8 % (45.0-75.0) Lymphocytes (%) (Auto) 19.3 % (20.0-45.0) Monocytes (%) (Auto) 7.8 % (1.0-10.0) Eosinophils (%) (Auto) 1.0 % (0.0-3.0) Basophils (%) (Auto) 1.1 % (0.0-2.0) Sodium Level 138 MMOL/L (136-145) Potassium Level 4.3 MMOL/L (3.5-5.1) Chloride Level 105 MMOL/L (98-107) Carbon Dioxide Level 25 MMOL/L (21-32) Anion Gap 8 mmol/L (5-15) Blood Urea Nitrogen 11 mg/dL (7-18) Creatinine 1.1 MG/DL (0.55-1.30) Estimat Glomerular Filtration Rate > 60 mL/min (>60) Glucose Level 95 MG/DL (74-106) Calcium Level 9.4 MG/DL (8.5-10.1) Total Bilirubin 0.7 MG/DL (0.2-1.0) Aspartate Amino Transf (AST/SGOT) 28 U/L (15-37) Alanine Aminotransferase (ALT/SGPT) 35 U/L (12-78) Alkaline Phosphatase 68 U/L (46-116) Total Protein 8.2 G/DL (6.4-8.2) Albumin 3.9 G/DL (3.4-5.0) Globulin 4.3 g/dL Albumin/Globulin Ratio 0.9 (1.0-2.7) Lipase 104 U/L (73-393) Human Chorionic Gonadotropin, Qual Negative EKG Diagnostic Results Rate: normal Rhythm: NSR ST Segments: no acute changes Rhythm Strip Diag. Results EP Interpretation: yes Rate: 65 Rhythm: NSR, no PVC's, no ectopy Chest X-Ray Diagnostic Results Chest X-Ray Diagnostic Results : Chest X-Ray Ordered: Yes # of Views/Limited/Complete: 1 View Indication: Chest Pain EP Interpretation: Yes Interpretation: no consolidation, no effusion, no pneumothorax Impression: No acute disease Electronically Signed by: José Rain DO Last Vital Signs Date Time Temp Pulse Resp B/P (MAP) Pulse Ox O2 Delivery O2 Flow Rate FiO2 01/28/18 11:37 51 14 110/86 99 Room Air 01/28/18 11:37 97.7 Status: improved Disposition: HOME, SELF-CARE Condition: Improved Scripts Ibuprofen* (MOTRIN*) 600 Mg Tablet 600 MG ORAL Q8H PRN for For Pain, #20 TAB 0 Refills Prov: José Rain DO 01/28/18 Referrals: NON PHYSICIAN (PCP) Patient Instructions: Nonspecific Chest Pain Additional Instructions: Patient is provided with the discharge instructions notified to follow up with primary doctor in the next 2-3 days otherwise return to the er with any worsening symptoms. Please note that this report is being documented using [employer] technology. This can lead to erroneous entry secondary to incorrect interpretation by the dictating instrument. José Rain DO January 30, 2018 07:08
== END 2018-01-28 11:37 | disposition home or self-care (01) ==
LOC: EMR 10:00
DX: R07.89 Other chest pain (principal); R09.1 Pleurisy; Z88.2 Allergy status to sulfonamides; F41.9 Anxiety disorder, unspecified
CPT/HCPCS: 36415; 71045; 80053; 81025; 83690; 84703; 85025; 93005; 99283